=== PATIENT | female | born 1960 | race Caucasian/White ===

== ENCOUNTER → 2017-02-28 | Outpatient (CLI) | payer OTHER ==
[~2017-02-28] MED LIST: LACT1CAP62 PO; OMEP40CA36 PO
--- NOTE | 2017-03-03 17:49 | Diagnostic Imaging Report ---
Bilateral screening mammogram. The current study was also evaluated with a Computer Aided Detection (CAD) system. INDICATION: Screening. No current complaints stated on the questionnaire. COMPARISON: 02/19/16. FINDINGS: The breasts are composed of scattered fibroglandular densities. No mass or significant calcification seen. Allowing for technique and positional differences, no suspicious change is seen. IMPRESSION: No significant change. ACR BI-RADS Category 2: Benign findings. Result letter will be mailed to the patient. Note: At least 10% of breast cancer is not imaged by mammography. Dictated by: Dictated on workstation # [id number]
== END ==
LOC: RAD 09:17
PROVIDERS: ATTEND Internal Medicine
DX: Z12.31 Encounter for screening mammogram for malignant neoplasm of breast (principal)
CPT/HCPCS: 77067

== ENCOUNTER 2017-03-06 05:40 | Outpatient (CLI) | payer OTHER ==
[~2017-03-06] VITALS: Ht 165.1 cm; Wt 88.9 kg
[2017-03-06] MEDS ORDERED: OMEP40CA36 PO (13:09)
[2017-03-06] MEDS ORDERED: LACT1CAP62 PO (13:09)
== END 2017-03-06 13:18 ==
LOC: PREOP 05:40
PROVIDERS: ATTEND Surgery Pediatric Surgery
DX: Z01.818 Encounter for other preprocedural examination (principal); R19.4 Change in bowel habit

== ENCOUNTER 2017-03-08 08:10 | Day surgery (SDC) | payer OTHER ==
[~2017-03-08] VITALS: Ht 165.1 cm; Wt 88.9 kg
[2017-03-08 08:27] VITALS: BP 130/71
[2017-03-08] MEDS ORDERED: FLUMAZENIL (ROMAZICON) 0.1 MG/ML 5 ML VIAL INJ PRN (08:30)
[2017-03-08] MEDS ORDERED: NALOXONE 0.4 MG/ML 1 ML (NARCAN) VIAL IVP PRN (08:30)
[2017-03-08] MEDS ORDERED: NS IV 500 ML 500 ML IV ONE (08:30)
[2017-03-08] MEDS ORDERED: NS IV 500 ML 500 ML ONE (08:41)
[2017-03-08] MEDS ORDERED: MIDAZOLAM 2 MG/2 ML (VERSED) VIAL ONE ×4 (09:34)
[2017-03-08] MEDS ORDERED: fentaNYL INJECTION 100 MCG/2 ML AMP ONE ×2 (09:34→09:35)
[2017-03-08] MEDS ORDERED: LIDOCAINE JELLY 2% (XYLOCAINE) 5 ML TUBE ONE (09:35)
[2017-03-08] MEDS: fentaNYL INJECTION 100 MCG/2 ML AMP IVP PRN ×4 (09:40→10:00)
--- NOTE | 2017-03-08 09:42 | Conscious Sedation/ASA ---
Conscious Sedation Pre-Proced Time Reviewed: 09:00 ASA Class: 2 Airway Mallampati Classification: ([place] appropriate class) I. II. III, IV Lungs Heart ASA score ASA 1: a normal healthy patient ASA 2: a patient with a mild systemic disease (mid diabetes, controlled hypertension, obesity ASA 3: a patient with a severe systemic disease that limits activity (angina , COPD, prior Myocardial infarction) ASA 4: a patient with an incapacitating disease that is a constant threat to life (CHF, renal failure) ASA 5: a moribund patient not expected to survive 24 hrs. (ruptured aneurysm) ASA 6: a declared brain patient whose organs are being harvested. For emergent operations, add the letter E after the classification Grade 2 Sedation Plan: Analgesia, Amnesia, Plan communicated to team members, Discussed options with patient/fam, Discussed risks with patient/fam Note The patient is an appropriate candidate to undergo the planned procedure, sedation, and anesthesia. The patient immediately re-assessed prior to indication. SHANTI COTA MD March 08, 2017 9:42 am
--- NOTE | 2017-03-08 09:42 | Progress Note-Pre Operative ---
Pre-Operative Progress Note H&P Reviewed The H&P was reviewed, patient examined and no changes noted. Date H&P Reviewed: March 08, 2017 Time H&P Reviewed: 09:00 Pre-Operative Diagnosis: hx colitis SHANTI COTA MD March 08, 2017 9:42 am
[2017-03-08] MEDS ORDERED: ACETAMINOPHEN 325 MG TABLET/CAPLET (TYLENOL) PO PRN (09:45)
[2017-03-08] MEDS ORDERED: morphine INJ 10 MG/ML 1ML (SYR OR VIAL) IV PRN (09:45)
[2017-03-08] MEDS ORDERED: HYDROcodone/APAP 5 MG/325 MG (LORTAB) TAB PO PRN (09:45)
[2017-03-08] MEDS ORDERED: ONDANSETRON 4 MG/2 ML (SDV) Z0FRAN IV PRN (09:45)
[2017-03-08] MEDS: MIDAZOLAM 2 MG/2 ML (VERSED) VIAL IVP PRN ×4 (09:45→10:04)
[2017-03-08 10:30] VITALS: BP 112/60
--- NOTE | 2017-03-08 10:33 | Progress Note-Post Operative ---
Post-Operative Progess Note Surgeon (s)/Professor Of Biological Sciences (s) Surgeon SHANTI COTA MD Professor Of Biological Sciences: none Pre-Operative Diagnosis hx colitis Post-Operative Diagnosis chronic stage 2 ext and int hemorrhoids, mild sigmoid diverticulosis, small HP polyp sigmoid(2mm). Post-Op Procedure Note Date of Procedure: March 08, 2017 Name of Procedure Performed: Colonoscopy with bx. Description of the Procedure: Colonoscopy with bx. Findings of the Procedure . Anesthesia Type CS Estimated blood loss (mL): minimal Specimen(s) collected/removed sigmoid polyp SHANTI COTA MD March 08, 2017 10:33 am
--- NOTE | 2017-03-08 10:34 | Discharge Inst-Surgical ---
D/C Lap Instructions-BEATA Follow Up 5 years Activity as tolerated High Fiber Diet 25g or more per day Avoid Alcohol, Caffeine, Spicy [place] and Acid foods. Drink 64 fluid oz or more of fluids per day. Symptoms to Report: Fever over 101 degree F, Nausea/Vomiting If any problems/questions: Contact your physician or go to Emergency Room SHANTI COTA MD March 08, 2017 10:34 am
[2017-03-08 11:15] VITALS: BP 120/62
[2017-03-08 11:26] VITALS: BP 120/62
--- NOTE | 2017-03-09 01:19 | OPERATIVE REPORT ---
DATE OF SERVICE: 03/08/2017 ATTENDING PRIMARY CARE PHYSICIAN: Dr. Jl Flynn. PREOPERATIVE DIAGNOSIS: Change in bowel habits with diarrhea and stool incontinence. DESCRIPTION OF PROCEDURE: She states that many years ago, in her early 20s, she was diagnosed with some form of colitis and it was treated; however, since that time, has never had any flareups or any issues. She does not report any red blood per rectum or any dark tarry stools. She also does not report any mucusy stools. The patient was brought to the endoscopy suite, laid in the left lateral decubitus position. After adequate IV pain, sedative medications and conscious sedation anesthesia digital rectal examination was performed. Chronic stage II external and internal hemorrhoids were identified which were not actively edematous or inflamed and no bleeding. Normal sphincter tone was felt and there were no palpable masses. The endoscope was then intubated into the anus and rectum gently insufflated. The endoscope was then advanced to the valves of [place] of the rectum with no polyps or any neoplasms identified. Through the sigmoid colon, there was a very mild or early sigmoid diverticulosis. There was also small hyperplastic polyp approximately 2 mm in size, which was benign. This was biopsied and destroyed using forceps and electrocautery with visualization of good hemostasis. The endoscope was then advanced to the remainder of the descending, transverse, ascending colon and the cecum. These segments were normal throughout the colon and rectum, there were no mucosal inflammatory change to indicate any active colitis or proctitis. The endoscope was then slowly withdrawn taking a second look and suctioning all residual air with no additional findings. The patient tolerated the procedure well. We feel that her change in bowel habits more than likely has to do with some form of irritable bowel syndrome as well as stress and diet changes. We will recommend a high fiber diet with at least 25-30 grams of fiber per day as well as significant amount of water, but at least 64-128 fluid ounces daily to promote soft stools on a daily basis. Hyperplastic polyp was identified and due to this, we will recommend a followup colonoscopy in approximately 5 years. Job ID: [id number] DocumentID: [id number] Dictated Date: 03/08/2017 10:24:11 General Utility Maintenance Repairer Date: 03/09/2017 00:10:01 Dictated By: SHANTI COTA MD
== END 2017-03-08 11:27 | disposition home or self-care (01) ==
LOC: ENDO 08:10
PROVIDERS: ATTEND Surgery Pediatric Surgery
DX: K63.5 Polyp of colon (principal); K64.1 Second degree hemorrhoids; K57.90 Diverticulosis of intestine, part unspecified, without perforation or abscess without bleeding; R19.5 Other fecal abnormalities; K21.9 Gastro-esophageal reflux disease without esophagitis; Z87.891 Personal history of nicotine dependence
CPT/HCPCS: 88305

== ENCOUNTER → 2017-07-19 | Outpatient (CLI) | payer OTHER ==
[~2017-07-19] MED LIST changes: +ASPI-999 PO; +ATOR10TA PO; +NF-XOP-HFA IH; +RT-ALBUTEROL SULF 2.5 MG/3 ML PRE-MIX VIAL IH ONE
--- NOTE | 2017-07-19 10:25 | Diagnostic Imaging Report ---
INDICATION: Chest pain. COMPARISON: 08/01/2016. FINDINGS: The lungs are clear. The heart and vessels are normal. There is no effusion or pneumothorax. IMPRESSION: No acute appearing abnormality. Dictated by: Dictated on workstation # [id number]
== END ==
LOC: RT 08:11
PROVIDERS: ATTEND Internal Medicine
DX: R06.00 Dyspnea, unspecified (principal)
CPT/HCPCS: 71020; 94060; 94640; 94726; 94729

== ENCOUNTER → 2017-08-30 | Outpatient (CLI) | payer OTHER ==
[~2017-08-30] VITALS: Ht 165.1 cm; Wt 90.3 kg
[~2017-08-30] MED LIST changes: -ASPI-999 PO; -ATOR10TA PO; +CATHETER FLUSH 10 ML SYR IV PRN; -NF-XOP-HFA IH; -RT-ALBUTEROL SULF 2.5 MG/3 ML PRE-MIX VIAL IH ONE
[2017-08-30 13:02] VITALS: BP 148/75
== END ==
LOC: CARD 08:50
PROVIDERS: ATTEND Internal Medicine Cardiovascular Disease
DX: R07.89 Other chest pain (principal); I10 Essential (primary) hypertension; E78.2 Mixed hyperlipidemia; R06.02 Shortness of breath; E66.9 Obesity, unspecified; Z68.33 Body mass index [BMI] 33.0-33.9, adult
CPT/HCPCS: 93306

== ENCOUNTER 2017-09-06 07:46 | Day surgery (SDC) | payer OTHER ==
[2017-09-06] VITALS (11 sets, daily range): BP systolic 102–148; BP diastolic 67–90
[~2017-09-06] VITALS: Ht 165.1 cm; Wt 90.7 kg
[~2017-09-06 07:46] MED LIST changes: -CATHETER FLUSH 10 ML SYR IV PRN
--- OUTSIDE RECORDS SUMMARY | 2017-09-06 07:49 | XMS REPORT | Continuity of Care Document ---
Author Author [facility] Organization [facility] Address Unknown Phone Unavailable Allergies Active Description Code Type Severity Reaction Onset Reported/Identified Relationship to Patient Clinical Status Yes pattie [id number] Drug Allergy Severe ANAPHYLAXIS 03/06/2017 Medications Problems Date Dx Coded Attending Type Code Diagnosis Diagnosed By 02/22/2016 NATE CLIFFORD MD, Ot E11.9 TYPE 2 DIABETES MELLITUS WITHOUT COMPLIC 02/22/2016 NATE CLIFFORD MD, Ot I10 ESSENTIAL (PRIMARY) HYPERTENSION 02/22/2016 NATE CLIFFORD MD Ot Z00.00 ENCNTR FOR GENERAL ADULT MEDICAL EXAM W02/22/2016 NATE CLIFFORD MD Ot Z12.31 ENCNTR SCREEN MAMMOGRAM FOR MALIGNANT NE 03/18/2016 NATE CLIFFORD MD Ot E11.9 TYPE 2 DIABETES MELLITUS WITHOUT COMPLIC 03/18/2016 NATE CLIFFORD MD Ot I10 ESSENTIAL (PRIMARY) HYPERTENSION 03/18/2016 NATE CLIFFORD MD Ot Z00.00 ENCNTR FOR GENERAL ADULT MEDICAL EXAM W03/18/2016 NATE CLIFFORD MD Ot Z12.31 ENCNTR SCREEN MAMMOGRAM FOR MALIGNANT NE 07/05/2016 NATE CLIFFORD MD Ot E11.9 TYPE 2 DIABETES MELLITUS WITHOUT COMPLIC 07/05/2016 NATE CLIFFORD MD Ot I10 ESSENTIAL (PRIMARY) HYPERTENSION 07/05/2016 NATE CLIFFORD MD Ot Z00.00 ENCNTR FOR GENERAL ADULT MEDICAL EXAM W07/05/2016 NATE CLIFFORD MD Ot Z12.31 ENCNTR SCREEN MAMMOGRAM FOR MALIGNANT NE 07/06/2016 NATE CLIFFORD MD Ot E78.4 OTHER HYPERLIPIDEMIA 08/01/2016 NATE CLIFFORD MD Ot E78.4 OTHER HYPERLIPIDEMIA 08/02/2016 NATE CLIFFORD MD Ot R05 COUGH 08/03/2016 NATE CLIFOFRD MD Ot E78.4 OTHER HYPERLIPIDEMIA 08/07/2016 NATE CLIFFORD MD Ot R05 COUGH 09/01/2016 NATE CLIFFORD MD Ot R05 COUGH 03/01/2017 NATE CLIFFORD MD Ot Z12.31 ENCNTR SCREEN MAMMOGRAM FOR MALIGNANT NE 03/03/2017 NATE CLIFFORD MD Ot E78.4 OTHER HYPERLIPIDEMIA 03/03/2017 NATE CLIFFORD MD, Ot R05 COUGH 03/03/2017 NATE CLIFFORD MD Ot Z12.31 ENCNTR SCREEN MAMMOGRAM FOR MALIGNANT NE 03/06/2017 SHANTI COTA MD, Ot R19.4 CHANGE IN BOWEL HABIT 03/06/2017 SHANTI COTA MD, Ot Z01.818 ENCOUNTER FOR OTHER PREPROCEDURAL EXAMIN 03/08/2017 SHANTI COTA MD, Ot K21.9 GASTRO-ESOPHAGEAL REFLUX DISEASE WITHOUT 03/08/2017 SHANTI COTA MD, Ot K57.90 DVRTCLOS OF INTEST, PART UNSP, W/O PERF 03/08/2017 SHANTI COTA MD Ot K63.5 POLYP OF COLON 03/08/2017 SHANTI COTA MD Ot K64.1 SECOND DEGREE HEMORRHOIDS 03/08/2017 SHANTI COTA MD Ot R19.5 OTHER FECAL ABNORMALITIES 03/08/2017 SHANTI COTA MD Ot Z87.891 PERSONAL HISTORY OF NICOTINE DEPENDENCE 03/14/2017 SHANTI COTA MD Ot K21.9 GASTRO-ESOPHAGEAL REFLUX DISEASE WITHOUT 03/14/2017 SHANTI COTA MD Ot K57.90 DVRTCLOS OF INTEST, PART UNSP, W/O PERF 03/14/2017 SHANTI COTA MD Ot K63.5 POLYP OF COLON 03/14/2017 SHANTI COTA MD, Ot K64.1 SECOND DEGREE HEMORRHOIDS 03/14/2017 SHANTI COTA MD Ot R19.5 OTHER FECAL ABNORMALITIES 03/14/2017 SHANTI COTA MD Ot Z87.891 PERSONAL HISTORY OF NICOTINE DEPENDENCE 07/17/2017 NATE CLIFFORD MD, Ot E78.4 OTHER HYPERLIPIDEMIA 07/17/2017 NATE CLIFFORD MD, Ot R05 COUGH 07/17/2017 NATE CLIFFORD MD Ot Z12.31 ENCNTR SCREEN MAMMOGRAM FOR MALIGNANT NE 07/20/2017 NATE CLIFFORD MD Ot R06.00 DYSPNEA, UNSPECIFIED 07/25/2017 NATE CLIFFORD MD Ot R06.00 DYSPNEA, UNSPECIFIED Procedures Results Test Result Range Lipid 1996 panel - 07/05/16 08:21 Serum or plasma triglyceride measurement (mass/volume) 107 mg/dL <150 Serum or plasma cholesterol measurement (mass/volume) 221 mg /dL < 200 Serum or plasma cholesterol in HDL measurement (mass/volume) 52 mg/dL 40-60 Cholesterol in LDL [mass/volume] in serum or plasma by direct assay 157 mg/dL 1-129 Serum or plasma cholesterol in VLDL measurement (mass/volume) 21 mg/dL 5-40 Encounters ACCT No. Visit Date/Time Discharge Status Pt. Type Provider Facility Loc./Unit Complaint [id number] 08/30/2017 08:50:00 2016 23:59:59 CLS Outpatient LUDWIN HINES MD [facility] CARD R07.89 ANTERIOR CHEST WALL PAIN [id number] 08/01/2017 15:37:00 2016 23:59:59 CLS Preadmit LUDWIN HINES MD [facility] CARD ANTERIOR CHEST WALL PAIN [id number] 07/19/2017 08:11:00 2016 23:59:59 CLS Outpatient NATE CLIFFORD MD [facility] RT DYSPNEA [id number] 03/08/2017 08:10:00 2016 11:27:00 DIS Outpatient SHANTI COTA MD [facility] ENDO SCREENING [id number] 03/06/2017 05:40:00 2016 13:18:00 DIS Outpatient SHANTI COTA MD [facility] PREOP COLONOSCOPY [id number] 02/28/2017 09:17:00 2016 23:59:59 CLS Outpatient NATE CLIFFORD MD [facility] RAD SCREENING [id number] 08/01/2016 10:22:00 2015 23:59:59 CLS Outpatient NATE CLIFFORD MD [facility] RAD COUGH [id number] 07/05/2016 08:08:00 2015 23:59:59 CLS Outpatient NATE CLIFFORD MD [facility] LAB E78.4 [id number] 02/19/2016 11:04:00 2015 23:59:59 CLS Outpatient NATE CLIFFORD MD [facility] RAD SCREENING [id number] 06/26/2015 11:43:00 2014 23:59:59 CLS Outpatient MINH BAIN [facility] OCC
[2017-09-06] MEDS ORDERED: NS IV 1000 ML 3,000 ML ONE (07:51)
[2017-09-06] MEDS ORDERED: HEParin 1000 UNIT/ML (10ML VIAL) FOR BOLUS ONE (07:51)
[2017-09-06] MEDS ORDERED: NS IV 1000 ML 1,000 ML IV SCH ×2 (08:15→11:36)
[2017-09-06 08:27] LABS: MEAN PLATELET VOLUME 9.9 FL (7.4-10.4); RED BLOOD COUNT 4.73 10^6/uL (4.35-5.85); RED CELL DISTRIBUTION WIDTH 13.7 % (10.0-14.5)
[2017-09-06 08:27] LABS: BILIRUBIN,URINE NEGATIVE (NEGATIVE); KETONES,URINE NEGATIVE (NEGATIVE); LEUKOCYTE ESTERASE ,URINE 1+ (NEGATIVE); NITRITE,URINE NEGATIVE (NEGATIVE); PH,URINE 5 (5-9); PROTEIN,URINE NEGATIVE (NEGATIVE); UROBILINOGEN,URINE NORMAL (NORMAL)
[2017-09-06 08:37] LABS: INR 0.8 (0.8-1.4); PROTHROMBIN TIME PATIENT 11.6 SEC (12.2-14.7)
[2017-09-06 08:37] LABS: SQUAMOUS EPITHELIAL CELL,UR 25-50 /HPF; WBC,URINE RARE /HPF
[2017-09-06 08:45] LABS: ALANINE AMINOTRANSFERASE 17 U/L (0-55); ALBUMIN 4.2 GM/DL (3.2-4.5); ANION GAP 10 MMOL/L (5-14); ASPARTATE AMINO TRANSFERASE 20 U/L (5-34); BILIRUBIN,TOTAL 0.5 MG/DL (0.1-1.0); BLOOD UREA NITROGEN 21 MG/DL (7-18); BUN/CREATININE RATIO 25; CARBON DIOXIDE 26 MMOL/L (21-32); CHLORIDE 105 MMOL/L (98-107); CHOLESTEROL 244 MG/DL (< 200); CREATININE SERUM 0.83 MG/DL (0.60-1.30); DIRECT LDL 168 MG/DL (1-129); GFR ESTIMATED > 60; GLUCOSE 113 MG/DL (70-105); SODIUM 141 MMOL/L (135-145); TOTAL PROTEIN 7.5 GM/DL (6.4-8.2); TRIGLYCERIDES 141 MG/DL (<150); VLDL CHOLESTEROL 28 MG/DL (5-40)
--- NOTE | 2017-09-06 08:51 | Diagnostic Imaging Report ---
Portable upright radiograph of the chest. INDICATION: Abnormal stress test and chest pain. FINDINGS: The lungs are clear. The heart size is normal. No effusion or pneumothorax The mediastinum and venessa appear unremarkable. Impression: Unremarkable exam. Dictated by: Dictated on workstation # [id number]
[2017-09-06] MEDS ORDERED: ASPI-999 PO (09:03)
[2017-09-06] MEDS ORDERED: NF-XOP-HFA IH (09:03)
--- NOTE | 2017-09-06 10:00 | Cardiac Procedure Note-CS/ASA ---
Pre-Procedure Note Pre-Op Procedure Note H&P Reviewed The H&P was reviewed, patient examined and no changes noted. Date H&P Reviewed: Sep 06, 2017 Time H&P Reviewed: 10:00 Conscious Sedation Pre-Proced Time Reviewed: 10:00 ASA Class: 3 Airway Mallampati Classification: ([place] appropriate class) I. II. III, IV Lungs Heart ASA score ASA 1: a normal healthy patient ASA 2: a patient with a mild systemic disease (mid diabetes, controlled hypertension, obesity x ASA 3: a patient with a severe systemic disease that limits activity (angina , COPD, prior Myocardial infarction) ASA 4: a patient with an incapacitating disease that is a constant threat to life (CHF, renal failure) ASA 5: a moribund patient not expected to survive 24 hrs. (ruptured aneurysm) ASA 6: a declared brain patient whose organs are being harvested. For emergent operations, add the letter E after the classification Grade 3 Sedation Plan: Analgesia, Amnesia, Plan communicated to team members, Discussed options with patient/fam, Discussed risks with patient/fam Note The patient is an appropriate candidate to undergo the planned procedure, sedation, and anesthesia. The patient immediately re-assessed prior to indication. LUDWIN HINES MD Sep 06, 2017 10:00
[2017-09-06] MEDS ORDERED: MIDAZOLAM 5 MG/5 ML (VERSED) VIAL ONE (10:25)
[2017-09-06] MEDS ORDERED: fentaNYL INJECTION 100 MCG/2 ML AMP ONE (10:25)
[2017-09-06] MEDS ORDERED: ATOR10TA PO (11:38)
--- NOTE | 2017-09-06 11:39 | Discharge Inst-Post CATH ---
Discharge Inst-CATH Post Cardiac Cath D/C Inst Follow Up/Plan Appointment with Dr Mulligan's office in 2-4 weeks CARDIAC CATH DISCHARGE INSTRUCTIONS *Hold Metformin for 48 hours post heart cath. ACTIVITY * Go Home directly and rest. * Limit activity of the leg (or wrist if it was used) for 7 days including aerobics, swimming, jogging, bicycling, etc. * Restrict stair-climbing for 7 days if possible, if not, climb up with your non -cath leg, then bring together on the same step. * Avoid lifting, pushing, pulling or excessive movement of the affected extremity for 7 days. * Customary sexual activity may be resumed after 2 days-use caution not to use a position that strains or causes pain to the affected extremity. * No driving for 24 hours. * NO SMOKING. * Avoid straining for bowel movements for 7 days. * Gentle walking on level ground is allowed. * Returning to work will depend on the type of procedure and the results. Your doctor will discuss this with you. CALL YOUR DOCTOR FOR ANY OF THE FOLLOWING: *If bleeding from the puncture site occurs- Apply gentle pressure to site with clean cloth and call your doctor or EMS. * If a knot or lump forms under the skin, increases in size, or causes pain. * If bruising appears to be worsening or moving further down your leg instead of disappearing. * Temperature above 101 F. CARE OF YOUR GROIN INCISION; * Bruising or purple discoloration of the skin near the puncture site is common. * You may shower only, no bathtub bathing for 5 days. Be careful to avoid slipping as your leg may feel stiff. * If a closure device was used on your femoral artery, please see the attached guide regarding care of the device and your leg. * REMOVE the dressing from your groin the next day after your procedure in the shower. CARE OF YOUR WRIST INCISION; * Bruising or purple discoloration of the skin near the puncture site is common. * You may shower. * DO NOT submerge wrist. * Remove dressing in 24 hours. LUDWIN MULLIGAN MD Sep 06, 2017 11:39
--- NOTE | 2017-09-06 11:43 | Cardiac Cath Report ---
Cardiac Cath Report Physician (s)/Audit Analyst (s) Physician LUDWIN HINES MD Pre-Procedure Diagnosis Pre-Procedure Diagnosis: CAD Post-Procedure Note Procedure Start Date: Sep 06, 2017 Procedure Start Time: 11:00 Name of Procedure: [facility] Findings/Procedure Note PROCEDURE NOTE: After explaining the procedure to the patient, all pros and cons were explained, all questions were answered. The patient signed the consent and then she was placed on the cardiac catheterization laboratory. The patient was placed on the cardiac catheterization laboratory. Groin was prepped SL fashion local anesthesia was used. Sheath placed in the artery. Amie left and MP1 catheter were used to access the coronary system. Pigtail was used to access the left ventricular cavity. Left ventriculogram was not done Aortic arch angiogram was not done At the end of the procedure the sheath was removed. 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 LV Gram Was not done pressure was measured CONCLUSION: 1. Mild coronary artery disease nonobstructive disease 2. 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 Normal left ventricular end-diastolic pressure DISCUSSION AND RECOMMENDATION: no intervention is needed, patient has hyperlipidemia which will be treated. Anesthesia Type: Conscious Sedation Estimated blood loss (mL): 10 ml Contrast Amount: 37 ml Total Radiation Dose: 426 mGy Post-Procedure Diagnosis Post-operative diagnosis: Coronary artery disease Hyperlipidemia Chest pain nonspecific etiology LUDWIN HINES MD Sep 06, 2017 11:43
[2017-09-06] MEDS ORDERED: PATIENT MAY USE OWN MEDS, ALL PO SCH (11:45)
== END 2017-09-06 15:55 | disposition home or self-care (01) ==
LOC: CATH 07:46 → SURG 11:58 → CATH 15:55
PROVIDERS: ATTEND Internal Medicine Cardiovascular Disease
DX: I25.10 Atherosclerotic heart disease of native coronary artery without angina pectoris (principal); I10 Essential (primary) hypertension; E78.2 Mixed hyperlipidemia; J44.9 Chronic obstructive pulmonary disease, unspecified; K21.9 Gastro-esophageal reflux disease without esophagitis; E06.9 Thyroiditis, unspecified; E66.9 Obesity, unspecified; Z68.33 Body mass index [BMI] 33.0-33.9, adult; Z87.891 Personal history of nicotine dependence; Z82.49 Family history of ischemic heart disease and other diseases of the circulatory system; Z79.82 Long term (current) use of aspirin
CPT/HCPCS: 36415; 36430; 71010; 80053; 80061; 81000; 85027; 85610; 85730; 87081; 93458

== ENCOUNTER → 2018-03-01 | Outpatient (CLI) | payer OTHER ==
[~2018-03-01] MED LIST changes: +ASPI-999 PO; +ATOR10TA PO; +NF-XOP-HFA IH
--- NOTE | 2018-03-01 19:39 | Diagnostic Imaging Report ---
INDICATION: Routine screening. Comparison is made with prior study from 02/28/2017 and 02/19/2016. TECHNIQUE: Bilateral 3D digital tomographic views were obtained with [employer] and reviewed on a [employer] workstation. In addition, CAD - computer aided detection was utilized. FINDINGS: Scattered fibroglandular densities are identified bilaterally. No mass or malignant-appearing microcalcifications are seen. The axillae are unremarkable. IMPRESSION: No mammographic features suspicious for malignancy are identified. ACR BI-RADS Category 1: Negative. Result letter will be mailed to the patient. Note: At least 10% of breast cancer is not imaged by mammography. Dictated by: Dictated on workstation # [id number]
== END ==
LOC: RAD 09:41
PROVIDERS: ATTEND Internal Medicine
DX: Z12.31 Encounter for screening mammogram for malignant neoplasm of breast (principal)
CPT/HCPCS: 77067

== ENCOUNTER → 2018-04-10 | Outpatient (CLI) | payer OTHER ==
--- NOTE | 2018-04-10 17:08 | Diagnostic Imaging Report ---
EXAMINATION: Ultrasound of the head and neck. INDICATION: Left cervical lymph nodes. COMPARISON: There are no previous studies available for comparison. FINDINGS: By history, the patient has palpable lymph nodes in the left neck. However, on this exam, there is no cervical adenopathy identified. In the area of the patient's palpable abnormality, however, the proximal internal carotid artery does seem prominent. There is blood flow within the vessel, and there is no sign of occlusion. Even so, a dedicated carotid Doppler exam would be recommended for further evaluation of the internal carotid artery and the bifurcation. The thyroid gland is not enlarged with the right lobe measuring 4.3 x 1.4 x 1.7 cm while the left lobe estimated to be 4.9 x 1.9 x 1.5 cm (normal gland size 4-5 x 2 x 2 cm or less). Within the left lobe of the thyroid, there is a fairly well-circumscribed avascular hypoechoic mass measuring 2.1 x 1.4 x 1.7 cm. Whether this is a solid nodule or whether this is a cyst which has been complicated by infection and/or hemorrhage is not certain. I would recommend that a nuclear medicine thyroid scan be performed to better characterize this finding unless there are previous thyroid ultrasound exams available to demonstrate that this lesion is stable. There are also subcentimeter nodules in the right lobe and the isthmus. IMPRESSION: 1. There is no cervical adenopathy identified. 2. The internal carotid artery on the left does seem prominent. A carotid Doppler exam would be recommended for further evaluation. 3. A nuclear medicine thyroid scan would be recommended to better evaluate the 2.1 x 1.4 cm nodule in the left lobe of the thyroid. Dictated by: Dictated on workstation # [id number]
== END ==
LOC: RAD 13:55
PROVIDERS: ATTEND Nurse Practitioner
DX: E04.1 Nontoxic single thyroid nodule (principal); R59.0 Localized enlarged lymph nodes
CPT/HCPCS: 76536

== ENCOUNTER → 2018-04-17 | Outpatient (CLI) | payer OTHER ==
--- NOTE | 2018-04-17 13:16 | Diagnostic Imaging Report ---
PROCEDURE: US carotid duplex, bilateral. TECHNIQUE: Multiple real-time grayscale images were obtained over the carotid arteries in various projections, bilaterally. Additional duplex Doppler and color Doppler images were also obtained. INDICATION: Suggestion of abnormal findings of the of the internal carotid artery on recent ultrasound imaging the soft tissue neck. TECHNIQUE: Multiple real-time images with color Doppler imaging were performed. Doppler velocity and waveform data were obtained. The cervical carotid and vertebral arteries were evaluated. FINDINGS: Color and grayscale images demonstrate mild scattered atheromatous plaque involving the carotid arteries, particularly at the carotid bifurcations. This is perhaps slightly more pronounced on the left compared to the right. However, there are no abnormally elevated velocities or findings to suggest significant stenosis of the carotid arteries at this time. External carotid arteries are patent. Vertebral arteries are with antegrade direction of flow. IMPRESSION: 1. Carotid Doppler imaging demonstrates mild areas of scattered plaque present. However, currently no findings to suggest a hemodynamically significant stenosis at this time. 2. Periodic followup survey assessment would be recommended for reevaluation. Parameters based on the consensus panel Vásquez-Scale and Doppler ultrasound criteria published September 2003, Radiology, Volume 229. DOPPLER (peak systolic velocity M/S Right Left CCA .79 .78 ICA Proximal .79 1.12 ICA Mid .83 1.17 ICA Distal 1.02 1.11 RATIO 1.3 1.5 ECA 1.04 1.05 VERT .44 .53 Dictated by: Dictated on workstation # [id number]
== END ==
LOC: RAD 11:13
PROVIDERS: ATTEND Nurse Practitioner
DX: I65.23 Occlusion and stenosis of bilateral carotid arteries (principal)
CPT/HCPCS: 93880

== ENCOUNTER 2018-07-12 09:45 | Outpatient (RCR) | payer OTHER | END 2018-08-31 13:38 | disposition home or self-care (01) | DX: M25.511 Pain in right shoulder (principal); M79.601 Pain in right arm; M54.2 Cervicalgia ==

== ENCOUNTER 2018-11-24 09:13 | Emergency (ER) | payer OTHER | END 2018-11-24 12:36 | disposition home or self-care (01) | LOC: ER 09:13 ==

== ENCOUNTER → 2019-03-08 | Outpatient (CLI) | payer OTHER ==
--- NOTE | 2019-03-08 19:03 | Diagnostic Imaging Report ---
EXAMINATION: Digital mammogram bilateral screening with 3D tomosynthesis and computer-aided detection (CAD) system. INDICATION: Screening. COMPARISON: This study was compared to the prior exams of 03/01/2018, 02/28/2017, and 03/01/2016. At this time, there are no current complaints. FINDINGS: The breasts are predominantly fatty. There is only a small amount of fibroglandular tissue in both breasts. There is no primary or secondary sign of malignancy noted. When compared to the previous studies, there does not appear to have been any significant change. IMPRESSION: There is no evidence of malignancy. ACR BI-RADS Category 1: Negative. Result letter will be mailed to the patient. Note: At least 10% of breast cancer is not imaged by mammography. Dictated by: Dictated on workstation # [id number]
== END ==
LOC: RAD 09:06
PROVIDERS: ATTEND Internal Medicine
DX: Z12.31 Encounter for screening mammogram for malignant neoplasm of breast (principal)
CPT/HCPCS: 77067

== ENCOUNTER → 2020-03-27 | Outpatient (CLI) | payer OTHER ==
[~2020-03-27] MED LIST changes: +OMEP40CA27 PO; -OMEP40CA36 PO
--- NOTE | 2020-03-27 18:40 | Diagnostic Imaging Report ---
INDICATION: Routine screening. Comparison is made with prior mammograms from 03/08/2019 and 03/01/2018. 2-D and 3-D bilateral screening mammography was performed. Current study was also evaluated with a Computer Aided Detection (CAD) system. FINDINGS: Scattered fibroglandular densities are identified bilaterally. The parenchymal pattern is stable. No mass or malignant-appearing microcalcifications are identified. Axillae are unremarkable. IMPRESSION: No mammographic features suspicious for malignancy are identified. ACR BI-RADS Category 1: Negative. Result letter will be mailed to the patient. Note: At least 10% of breast cancer is not imaged by mammography. Dictated by: Dictated on workstation # [id number]
== END ==
LOC: RAD 09:35
PROVIDERS: ATTEND Physician Assistant
DX: Z12.31 Encounter for screening mammogram for malignant neoplasm of breast (principal)
CPT/HCPCS: 77063; 77067

== ENCOUNTER → 2020-07-03 | Outpatient (CLI) | payer OTHER ==
[2020-07-03 09:56] LABS: ALANINE AMINOTRANSFERASE 17 U/L (0-55); ALBUMIN 3.9 GM/DL (3.2-4.5); ALKALINE PHOSPHATASE 85 U/L (40-136); BILIRUBIN,TOTAL 0.3 MG/DL (0.1-1.0); BUN/CREATININE RATIO 20; CALCIUM 9.6 MG/DL (8.5-10.1); CARBON DIOXIDE 30 MMOL/L (21-32); CHLORIDE 105 MMOL/L (98-107); CREATININE SERUM 0.79 MG/DL (0.60-1.30); GFR ESTIMATED > 60; GLUCOSE 85 MG/DL (70-105); SODIUM 141 MMOL/L (135-145)
== END ==
LOC: LAB 09:15
PROVIDERS: ATTEND Internal Medicine
DX: E11.9 Type 2 diabetes mellitus without complications (principal); I10 Essential (primary) hypertension; Z79.899 Other long term (current) drug therapy
CPT/HCPCS: 36415; 80053; 83036

== ENCOUNTER → 2020-10-21 | Outpatient (CLI) | payer OTHER ==
[~2020-10-21] MED LIST changes: +CATHETER FLUSH 10 ML SYR IV PRN; +HOLD METFORMIN - RECEIVED CONTRAST 20 ML VIAL IV SCH; +IOHEXOL 350 MG/ML 100 ML (OMNIPAQUE 350) VIAL IV ONE; +NS 100 ML (IVPB) BAG IV ONE
--- NOTE | 2020-10-21 16:21 | Diagnostic Imaging Report ---
PROCEDURE: CT head with and without contrast. TECHNIQUE: Multiple contiguous axial images were obtained through the brain before and after the administration of intravenous contrast. Auto Exposure Controls were utilized during the CT exam to meet ALARA standards for radiation dose reduction. INDICATION: Headache and dizziness. FINDINGS: The ventricles and sulci are within normal limits for size. There is no geographic low density to indicate territorial infarct however there is a focal rounded lucency, measuring less than 1 cm in size, in the left frontal deep white matter. There is no abnormal mass effect or shift of midline structures. There is mild athetotic calcic aeration present within distal internal carotid arteries, bilaterally. There is no evidence of abnormal contrast enhancement. Calvarium is intact and the visualized paranasal sinuses are clear. There is opacification of several posterior right mastoid air cells. IMPRESSION: 1. Possible old lacunar infarct in the left frontal deep white matter. There is concern for acute ischemia, MRI has greater sensitivity. 2. There is fluid present within the right mastoid air cells without evidence of paranasal sinus disease. Dictated by: Dictated on workstation # [id number]
== END ==
LOC: RAD 15:01
PROVIDERS: ATTEND Physician Assistant
DX: H93.19 Tinnitus, unspecified ear (principal); R42 Dizziness and giddiness; R11.0 Nausea; R51.9 Headache, unspecified
CPT/HCPCS: 70470

== ENCOUNTER → 2020-10-21 | Outpatient (CLI) | payer OTHER ==
[~2020-10-21] MED LIST changes: -CATHETER FLUSH 10 ML SYR IV PRN; -HOLD METFORMIN - RECEIVED CONTRAST 20 ML VIAL IV SCH; -IOHEXOL 350 MG/ML 100 ML (OMNIPAQUE 350) VIAL IV ONE; -NS 100 ML (IVPB) BAG IV ONE
[2020-10-21 11:09] LABS: MEAN PLATELET VOLUME 9.9 fL (9.0-12.2); WHITE BLOOD COUNT 7.1 10^3/uL (4.3-11.0)
[2020-10-21 11:25] LABS: ALBUMIN 4.2 GM/DL (3.2-4.5); BILIRUBIN,TOTAL 0.4 MG/DL (0.1-1.0); CALCIUM 9.7 MG/DL (8.5-10.1); CREATININE SERUM 0.98 MG/DL (0.60-1.30); POTASSIUM 3.8 MMOL/L (3.6-5.0); TOTAL PROTEIN 7.7 GM/DL (6.4-8.2)
== END ==
LOC: LAB 10:37
PROVIDERS: ATTEND Physician Assistant
DX: H93.19 Tinnitus, unspecified ear (principal); R11.0 Nausea; R42 Dizziness and giddiness
CPT/HCPCS: 36415; 80053; 83036; 84443; 85027; 85652; 86141

== ENCOUNTER → 2020-11-12 | Outpatient (CLI) | payer OTHER ==
[~2020-11-12] MED LIST changes: +GADOBUTROL 10 MMOL/10 ML (GADAVIST) VIAL IV ONE
--- NOTE | 2020-11-12 10:29 | Diagnostic Imaging Report ---
PROCEDURE: MR imaging of the brain with and without contrast. TECHNIQUE: Multiplanar, multisequence MR imaging of the brain was performed with and without contrast. INDICATION: Headaches and dizziness. The ventricles and sulci are within normal limits. Mild periventricular white matter changes are noted, likely on the basis of chronic microvascular ischemia. There is no diffusion restriction. The normal expected flow-voids within the carotid siphons are seen. No acute intra-axial or extra-axial hemorrhage is detected. Corpus callosum is unremarkable. Sella and parasellar structures are unremarkable. No abnormal enhancement following contrast administration is seen. IMPRESSION: Mild periventricular white matter changes, likely on the basis of chronic microvascular ischemia. No acute intracranial process is detected. Dictated by: Dictated on workstation # [id number]
--- NOTE | 2020-11-12 10:35 | Diagnostic Imaging Report ---
PROCEDURE: MR angiography neck with and without contrast. TECHNIQUE: Pre and post contrast-enhanced MR angiography of the neck was performed. Source data was reformatted into rotating MIP projections. INDICATION: Headaches and dizziness. FINDINGS: Both common carotid arteries appear to be widely patent. The carotid bifurcations are unremarkable. The internal carotid arteries appear to be widely patent. Left vertebral artery appears to be dominant. The right vertebral artery is very small and difficult to visualize. IMPRESSION: Poorly visualized right vertebral artery, likely very small. Remainder of the MRA of the neck is unremarkable. No carotid stenosis is identified. Dictated by: Dictated on workstation # [id number]
--- NOTE | 2020-11-12 10:39 | Diagnostic Imaging Report ---
PROCEDURE: MR angiography of the brain without the use of contrast. TECHNIQUE: 3D tumy-[id number] non contrast enhanced MR angiography of the head was performed. A source data was reformatted into rotating MIP projections. INDICATION: Headaches and dizziness. FINDINGS: Right and left distal internal carotid arteries are widely patent. The carotid siphons appear to be widely patent. Right and left middle cerebral arteries are unremarkable. No definite stenosis or aneurysm is seen. Right and left anterior cerebral arteries are unremarkable. ACOM is unremarkable without evidence of aneurysm. The basilar is patent. No basilar tip aneurysm is seen. Right and left posterior cerebral arteries appear to be patent. No vascular malformation is identified. IMPRESSION: Unremarkable MRA of the brain. Dictated by: Dictated on workstation # [id number]
== END ==
LOC: RAD 08:45
PROVIDERS: ATTEND Physician Assistant
DX: R90.82 White matter disease, unspecified (principal); R51.9 Headache, unspecified; H53.9 Unspecified visual disturbance; R93.0 Abnormal findings on diagnostic imaging of skull and head, not elsewhere classified
CPT/HCPCS: 70544; 70549; 70553

== ENCOUNTER → 2020-12-23 | Outpatient (CLI) | payer OTHER ==
[~2020-12-23] VITALS: Ht 165 cm; Wt 109.0 kg
[~2020-12-23] MED LIST changes: +CATHETER FLUSH 10 ML SYR IV PRN; -GADOBUTROL 10 MMOL/10 ML (GADAVIST) VIAL IV ONE; +REGADENOSON 0.4 MG/5 ML SYR (LEXISCAN) IV ONE
[2020-12-23 13:02] VITALS: BP 151/74
--- NOTE | 2020-12-24 08:44 | Cardiology Stress Test Report ---
Stress Test Report Date of Procedure/Referring: Date of Procedure: Dec 23, 2020 Veda Casillas Admitting Physician Jl Flynn MD Indications: Chest pain Baseline Heart Rate: 78 Baseline Blood Pressure: Blood Pressure Systolic: 151 Blood Pressure Diastolic: 74 Baseline Vitals Vital Signs Date Time Temp Pulse Resp B/P (MAP) Pulse Ox O2 Delivery O2 Flow Rate FiO2 12/23/20 13:02 69 151/74 (99) 99 Baseline EKG: Baseline EKG: normal sinus rhythm Summary After explaining the procedure to the patient, she signed a consent and then brought to the stress nuclear laboratory. Patient received 0.4 mg Lexiscan for stress test, ECG, heart rate and blood pressure were monitored continuously. Resting and stress dose of radio tracer were injected, imaging was acquired and reviewed in short axis, horizontal long axis and vertical long axis views. TID: 1.07 SSS: 4 SDS: 4 EF: 68 1. Patient tolerated Lexiscan well 2. No EKG changes noted during test 3. Breast attenuation with mild decrease uptake at the basal anterior wall and anterolateral wall with subtle reversibility, probably due to breast attenuation, no significant ischemia or infarction on SPECT images 4. Normal left ventricular size, EF 68 percent LUDWIN HINES MD Dec 24, 2020 08:44
== END ==
LOC: CARD 12:00
PROVIDERS: ATTEND Physician Assistant
DX: I08.1 Rheumatic disorders of both mitral and tricuspid valves (principal)
CPT/HCPCS: 78452; 93017; 93306; A9502

== ENCOUNTER → 2021-01-13 | Outpatient (CLI) | payer OTHER ==
[~2021-01-13] MED LIST changes: -CATHETER FLUSH 10 ML SYR IV PRN; -REGADENOSON 0.4 MG/5 ML SYR (LEXISCAN) IV ONE
--- NOTE | 2021-01-13 11:54 | Diagnostic Imaging Report ---
INDICATION: Status post fall onto back with pain across the anterior and mid rib area. TECHNIQUE: Single view chest along with 5 radiograph bilateral ribs, 11:29 AM. CORRELATION STUDY: Chest 09/06/2017 FINDINGS: The heart size, mediastinal configuration and pulmonary vascularity are within normal limits. Likely minimal left basilar discoid atelectasis. On a single view only, there is suggestion slight offset anterior right 5th rib suspect for subtle nondisplaced fracture. Remaining ribs otherwise appear to be intact. IMPRESSION: 1. Negative for acute abnormality of the chest. 2. Questionable nondisplaced anterior right 5th rib fracture. Dictated by: Dictated on workstation # [id number]
== END ==
LOC: RAD 10:52
PROVIDERS: ATTEND Physician Assistant
DX: R07.81 Pleurodynia (principal); Z91.81 History of falling
CPT/HCPCS: 71111

== ENCOUNTER → 2021-01-13 | Outpatient (CLI) | payer OTHER | LOC: CANPRECLI → RAD 10:50 | PROVIDERS: ATTEND Physician Assistant ==

== ENCOUNTER → 2021-01-14 | Outpatient (CLI) | payer OTHER ==
--- NOTE | 2021-01-14 13:29 | Diagnostic Imaging Report ---
PROCEDURE: CT chest without contrast. TECHNIQUE: Multiple contiguous axial images were obtained through the chest without the use of intravenous contrast. Auto Exposure Controls were utilized during the CT exam to meet ALARA standards for radiation dose reduction. INDICATION: Anterior rib pain. COMPARISON: Chest and rib radiographs 01/13/2021. FINDINGS: Mild linear atelectasis or scarring in the left lung base. The lungs are otherwise clear. No pleural effusion or pneumothorax. Borderline heart size. No pericardial effusion. No mediastinal, hilar or axillary lymphadenopathy. Visualized upper abdominal contents are unremarkable. Minimally displaced right anterior lateral 5th and 6th rib fractures appear acute. Osseous structures are otherwise intact. IMPRESSION: 1. Acute-appearing minimally displaced right anterolateral 5th and 6th rib fractures. 2. No other acute CT findings in the chest. There is only mild linear atelectasis or scarring in the left lung base. Dictated by: Dictated on workstation # [id number]
== END ==
LOC: RAD 11:24
PROVIDERS: ATTEND Physician Assistant
DX: S22.41XA Multiple fractures of ribs, right side, initial encounter for closed fracture (principal); W19.XXXA Unspecified fall, initial encounter
CPT/HCPCS: 71250

== ENCOUNTER → 2021-03-29 | Outpatient (CLI) | payer OTHER ==
--- NOTE | 2021-03-29 10:54 | Diagnostic Imaging Report ---
INDICATION: Routine screening. COMPARISON: 03/27/2020 and 03/08/2019. TECHNIQUE: 2D and 3D bilateral screening mammography was performed with CAD. FINDINGS: Scattered fibroglandular densities are identified bilaterally. The parenchymal pattern is stable. No mass or malignant appearing microcalcifications are seen. The axillae are unremarkable. IMPRESSION: No mammographic features suspicious for malignancy are identified. ACR BI-RADS Category 1: Negative. Result letter will be mailed to the patient. Note: At least 10% of breast cancer is not imaged by mammography. Dictated by: Dictated on workstation # [id number]
== END ==
LOC: RAD 07:45
PROVIDERS: ATTEND Nurse Practitioner Family
DX: Z12.31 Encounter for screening mammogram for malignant neoplasm of breast (principal)
CPT/HCPCS: 77063; 77067

== ENCOUNTER 2021-04-01 10:22 | Outpatient (RCR) | payer OTHER | END 2021-04-01 11:38 | disposition home or self-care (01) | PROVIDERS: ATTEND Physician Assistant | DX: S22.41XA Multiple fractures of ribs, right side, initial encounter for closed fracture (principal); M54.2 Cervicalgia; W19.XXXA Unspecified fall, initial encounter ==

== ENCOUNTER → 2021-04-01 | Outpatient (CLI) | payer OTHER ==
[2021-04-01 07:55] LABS: BASOPHILS # (AUTO) 0.1 10^3/uL (0.0-0.1); BASOPHILS % (AUTO) 1 % (0-10); EOSINOPHILS # (AUTO) 0.2 10^3/uL (0.0-0.3); EOSINOPHILS % (AUTO) 3 % (0-10); HEMATOCRIT 42 % (35-52); HEMOGLOBIN 13.8 g/dL (11.5-16.0); LYMPHOCYTES # (AUTO) 2.4 10^3/uL (1.0-4.0); LYMPHOCYTES % (AUTO) 42 % (12-44); MEAN CORPUSCULAR HEMOGLOBIN 30 pg (25-34); MEAN CORPUSCULAR HGB CONC 33 g/dL (32-36); MEAN CORPUSCULAR VOLUME 90 fL (80-99); MEAN PLATELET VOLUME 9.7 fL (9.0-12.2); MONOCYTES # (AUTO) 0.5 10^3/uL (0.0-1.0); MONOCYTES % (AUTO) 9 % (0-12); NEUTROPHILS # (AUTO) 2.5 10^3/uL (1.8-7.8); NEUTROPHILS % (AUTO) 45 % (42-75); PLATELET COUNT 289 10^3/uL (130-400); WHITE BLOOD COUNT 5.7 10^3/uL (4.3-11.0)
[2021-04-01 08:16] LABS: ALANINE AMINOTRANSFERASE 17 U/L (0-55); ALKALINE PHOSPHATASE 98 U/L (40-136); BILIRUBIN,TOTAL 0.5 MG/DL (0.1-1.0); BUN/CREATININE RATIO 17; CALCIUM 9.8 MG/DL (8.5-10.1); CARBON DIOXIDE 24 MMOL/L (21-32); CHLORIDE 106 MMOL/L (98-107); CHOLESTEROL 226 MG/DL (< 200); CREATININE SERUM 0.83 MG/DL (0.60-1.30); GFR ESTIMATED > 60; GLUCOSE 106 MG/DL (70-105); HDL CHOLESTEROL 50 MG/DL (40-60); POTASSIUM 4.2 MMOL/L (3.6-5.0); SODIUM 138 MMOL/L (135-145); TOTAL PROTEIN 7.2 GM/DL (6.4-8.2); TRIGLYCERIDES 167 MG/DL (<150); VLDL CHOLESTEROL 33 MG/DL (5-40)
== END ==
LOC: LAB 07:26
PROVIDERS: ATTEND Internal Medicine
DX: I10 Essential (primary) hypertension (principal); E78.2 Mixed hyperlipidemia; E11.9 Type 2 diabetes mellitus without complications; J44.9 Chronic obstructive pulmonary disease, unspecified
CPT/HCPCS: 36415; 80053; 80061; 83036; 84443; 85025

== ENCOUNTER 2021-05-18 10:01 | Outpatient (CLI) | payer OTHER ==
[~2021-05-18] VITALS: Ht 165.1 cm; Wt 102.2 kg
[~2021-05-18 10:01] MED LIST changes: -OMEP40CA27 PO; +OMEP40CA6 PO
[2021-05-18] MEDS ORDERED: L.AC1CAP6 PO (10:43)
[2021-05-18] MEDS ORDERED: FAMO40TA72 PO (10:43)
[2021-05-18] MEDS ORDERED: OMG1KC PO (10:43)
[2021-05-18] MEDS ORDERED: MTP25TSR PO (10:43)
== END 2021-05-18 11:39 ==
LOC: PREOP 10:01
PROVIDERS: ATTEND Surgery
DX: Z01.812 Encounter for preprocedural laboratory examination (principal); K21.9 Gastro-esophageal reflux disease without esophagitis; Z20.822 Contact with and (suspected) exposure to COVID-19
CPT/HCPCS: 87635

== ENCOUNTER 2021-05-19 13:26 | Day surgery (SDC) | payer OTHER ==
[~2021-05-19] VITALS: Ht 165.1 cm; Wt 102.2 kg
[~2021-05-19 13:26] MED LIST changes: +FAMO40TA72 PO; +L.AC1CAP6 PO; +MTP25TSR PO; +OMG1KC PO
[2021-05-19 13:35] VITALS: BP 150/85
[2021-05-19] MEDS ORDERED: LACTATED RINGERS 1,000 ML IV ONE (13:38)
[2021-05-19] MEDS ORDERED: HURRICAINE EXT TUBE (BENZOCAINE) XX PRN (14:15)
[2021-05-19] MEDS ORDERED: LIDOCAINE JELLY 2% 6 ML SYRINGE MM PRN (14:15)
[2021-05-19] MEDS ORDERED: LACTATED RINGERS 1,000 ML IV PRN (14:15)
[2021-05-19] MEDS ORDERED: proPOfol 200 MG/20 ML (DIPRIVAN) VIAL IV ONE (14:45)
[2021-05-19] MEDS ORDERED: MIDAZOLAM 2 MG/2 ML (VERSED) VIAL ONE (14:58)
[2021-05-19 15:30] VITALS: BP 132/60
[2021-05-19 15:55] VITALS: BP 135/63
--- NOTE | 2021-05-19 15:57 | Anesthesia-General Post-Op ---
MAC Patient Condition Mental Status/LOC: Same as Preop Cardiovascular: Satisfactory Nausea/Vomiting: Absent Respiratory: Satisfactory Pain: Controlled Complications: Absent Post Op Complications Complications None Follow Up Care/Instructions Patient Instructions None needed. Anesthesiology Discharge Order Discharge Order Patient is doing well, no complaints, stable vital signs, no apparent adverse anesthesia problems. No complications reported per nursing. MIKAL MCQUEEN CRNA May 19, 2021 15:57
[2021-05-19 16:25] VITALS: BP 135/63
--- NOTE | 2021-05-19 21:28 | OPERATIVE REPORT ---
DATE OF SERVICE: 05/19/2021 ATTENDING PRIMARY CARE PHYSICIAN: Jl Flynn MD PREOPERATIVE DIAGNOSES: Epigastric pain, reflux, dysphagia. POSTOPERATIVE DIAGNOSES: Reflux esophagitis between stage II and III, small hiatal hernia approximately 1.5 cm in size, mild to moderate gastritis, normal duodenum, mild distal esophageal stricture. PROCEDURE: EGD with biopsy and balloon dilatation. SURGEON: Shanti Cota MD ANESTHESIA: Monitored anesthesia care. ESTIMATED BLOOD LOSS: Minimal. FINDINGS: Reflux esophagitis between stage II and III, small hiatal hernia approximately 1.5 cm in size, mild to moderate gastritis, normal duodenum, mild distal esophageal stricture. DISPOSITION: The patient tolerated the procedure well. INDICATIONS: The patient is a 60-year-old female who has had a history of epigastric burning sensation as well as gastroesophageal reflux disease; however, this has worsened over time and she has been seen by cardiology and cardiac source has been ruled out. She states that the pain tends to be worse at night. She also does have some dysphagia for some types of foods as well. She does have a history of smoking; however, quit in 2017. Currently, she is on Pepcid 20 mg b.i.d. DESCRIPTION OF PROCEDURE: The patient was brought to the endoscopy suite, laid in the left lateral decubitus position. After adequate IV pain and sedative medications and monitored anesthesia care, the mouthpiece was applied. The endoscope was placed in the mouth, visualizing the pharynx and hypopharyngeal region. Vocal cords, epiglottis and vallecula identified and appeared to be normal. The endoscope was then gently abated esophageal opening and esophagus insufflated. The endoscope was then advanced through the first, second and third portion of esophagus. At the level of GE junction, significant reflux esophagitis between stage II and III identified. There was also mild distal esophageal stricture identified. Biopsies were taken of the GE junction with forceps with visualization of good hemostasis. The endoscope was then advanced in the stomach and endoscope retroflexed, visualizing a small hiatal hernia approximately 1.5 cm in size. There was a mild to moderate gastritis. No formal ulcerations, polyps, or any neoplasms. Biopsy was taken of the antrum to rule out H. pylori with visualization of good hemostasis. The endoscope was then advanced to the pylorus and first and second portion of the duodenum, which appeared normal and no distal obstructions. We then proceeded with balloon dilatation of the distal esophageal stricture and the balloon was placed into the stomach and pulled back to the area of stricture. We then proceeded gradual stepwise fashion from 2, 4, then 6 atmospheres of pressure or 20 mm in luminal diameter and left this in place for approximately 60 seconds. The balloon was then desufflated and removed with visualization of good hemostasis as well as no mucosal tears. Endoscope was then slowly withdrawn while taking a second look and suctioning of residual air with no additional findings. The patient tolerated the procedure well. Due to the significant reflux esophagitis, we will recommend the necessary lifestyle and diet accommodation including small and more frequent meals, avoidance of eating at night as well as head elevation while lying supine. She also needs to avoid caffeinated beverages, spicy, greasy and acidic foods. We will also proceed with starting her on Protonix 40 mg daily. We will await the biopsy results as well. Job ID: [id number] DocumentID: [id number] Dictated Date: 05/19/2021 15:36:40 Service Technician Copier Date: 05/19/2021 21:28:00 Dictated By: SHANTI COTA MD
== END 2021-05-19 16:25 | disposition home or self-care (01) ==
LOC: ENDO 13:26
PROVIDERS: ATTEND Surgery
DX: K21.00 Gastro-esophageal reflux disease with esophagitis, without bleeding (principal); K44.9 Diaphragmatic hernia without obstruction or gangrene; K22.2 Esophageal obstruction; K29.70 Gastritis, unspecified, without bleeding; I10 Essential (primary) hypertension; Z79.899 Other long term (current) drug therapy
CPT/HCPCS: 88305

== ENCOUNTER → 2021-08-09 | Outpatient (CLI) | payer OTHER ==
[2021-08-09 09:28] LABS: ALBUMIN 4.2 GM/DL (3.2-4.5); BILIRUBIN,TOTAL 0.6 MG/DL (0.1-1.0); CALCIUM 10.3 MG/DL (8.5-10.1); CREATININE SERUM 0.85 MG/DL (0.60-1.30); POTASSIUM 4.4 MMOL/L (3.6-5.0); TOTAL PROTEIN 7.9 GM/DL (6.4-8.2)
== END ==
LOC: LAB 08:46
PROVIDERS: ATTEND Internal Medicine
DX: E11.9 Type 2 diabetes mellitus without complications (principal); I10 Essential (primary) hypertension; E78.5 Hyperlipidemia, unspecified
CPT/HCPCS: 36415; 80053; 83036

== ENCOUNTER → 2021-08-24 | Outpatient (CLI) | payer OTHER ==
[2021-08-24 10:15] LABS: CALCIUM 9.8 MG/DL (8.5-10.1); CREATININE SERUM 0.83 MG/DL (0.60-1.30); POTASSIUM 3.9 MMOL/L (3.6-5.0)
== END ==
LOC: LAB 09:23
PROVIDERS: ATTEND Internal Medicine
DX: R94.4 Abnormal results of kidney function studies (principal)
CPT/HCPCS: 36415; 80048

== ENCOUNTER 2022-01-19 11:00 | Emergency (ER) | payer OTHER ==
[~2022-01-19] VITALS: Ht 165 cm; Wt 104.0 kg
[2022-01-19] MEDS ORDERED: MECLIZINE 25 MG (ANTIVERT) TAB PO ONE (11:30)
--- NOTE | 2022-01-19 11:35 | ED General ---
General Chief Complaint: Dizziness/Syncope Stated Complaint: DIZZY Nursing Triage Note: ARRIVED VIA AMB WITH COMPLAINTS OF DIZZINESS. 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 She had some difficulty walking feeling off balance. Currently she does not have any nausea or dizziness. She does have a history of hyperlipidemia and is supposed to be on some fish oil but states she does not really take it. She did have an episode of vertigo a couple of years ago where she felt like she was spinning but this time she states she feels as though she was "on a boat". Timing/Duration: 1-2 Days, Intermittent Severity: Moderate Associated Systoms: Nausea/Vomiting (SURESH BROWN APRN) Allergies and Home Medications Allergies Coded Allergies: kiwi (Verified Allergy, Severe, ANAPHYLAXIS, 03/06/17) Patient Home Medication List Home Medication List Reviewed: Yes (SURESH BROWN APRN) Famotidine (Pepcid) 40 Mg Tablet, 40 MG PO DAILY, (Reported) Entered as Reported by: STAR SALGUERO on 05/18/21 1043 L.acidoph & Paracasei,B.lactis (Probiotic) 1 Each Capsule, 1 EACH PO DAILY, (Reported) Entered as Reported by: STAR SALGUERO on 05/18/21 1043 Levalbuterol Tartrate (Xopenex Hfa) 15 Gm Hfa.aer.ad, 2 PUFF IH Q4H PRN for SHORTNESS OF BREATH, (Reported) Entered as Reported by: PAULA GRACE on 09/06/17 0903 Meclizine HCl (Meclizine HCl) 25 Mg Tablet, 25 MG PO TID Prescribed by: SURESH BROWN on 01/19/22 1307 Metoprolol Succinate (Metoprolol Succinate) 25 Mg Tab.er.24h, 25 MG PO DAILY, (Reported) Entered as Reported by: STAR SALGUERO on 05/18/21 1043 [place] 3 Polyunsat Fatty Acids (Fish Oil 1,000 mg Capsule) 1,000 Mg Cap, 1,000 MG PO DAILY, (Reported) Entered as Reported by: STAR SALGUERO on 05/18/21 1043 Review of Systems Review of Systems Constitutional: see HPI, dizziness EENTM: see HPI Respiratory: no symptoms reported Cardiovascular: no symptoms reported Genitourinary: no symptoms reported Musculoskeletal: no symptoms reported Skin: no symptoms reported Psychiatric/Neurological: No Symptoms Reported Hematologic/Lymphatic: No Symptoms Reported Immunological/Allergic: no symptoms reported (SURESH BROWN APRN) Past Wlibmqb-Rbyccg-Klfzgt Hx Patient Social History Smoking Status: Former Smoker Substance use?: No Alcohol Use?: No (SURESH BROWN APRN) Immunizations Up To Date COVID19 Vaccine First Helper: PHIZER (SURESH BROWN APRN) Seasonal Allergies Seasonal Allergies: No (SURESH BROWN APRN) Past Medical History Surgeries: No Tonsillectomy, Tubal Ligation Respiratory: Yes (NEWLY DIAGNOSED WITH "STAGE 1" LUNG DISEASE) Cardiac: No Neurological: No Reproductive Disorders: No Sexually Transmitted Disease: No HIV/AIDS: No Kidney Stones Gastrointestinal: No Gastroesophageal Reflux, Chronic Constipation, Chronic Diarrhea Musculoskeletal: No Arthritis Endocrine: No HEENT: Yes (TAKES EYE GTTS) Loss of Vision: Bilateral Hearing Impairment: Denies Cancer: No Psychosocial: No Integumentary: No Blood Disorders: No Adverse Reaction/Blood Tranf: No (N/A) (SURESH BROWN APRN) Physical Exam Vital Signs Vital Signs - First Documented 01/19/22 11:10 Temp 35.3 Pulse 78 Resp 16 B/P (MAP) 177/83 (114) Pulse Ox 97 O2 Delivery Room Air (JW TREVIZO MD) Vital Signs Capillary Refill : Less Than 3 Seconds (SURESH BROWN APRN) Height, Weight, BMI Height: 5'5.00" Weight: 185lbs. 0.0oz. 83.375381lk; 38.00 BMI Method:Stated General Appearance: No Apparent Distress, WD/WN Eyes: Bilateral Eye Normal Inspection, Bilateral Eye PERRL, Bilateral Eye EOMI HEENT: PERRL/EOMI, TMs Normal, Other (No nystagmus alert and oriented very pleasant) Neck: Full Range of Motion, Normal Inspection Respiratory: No Accessory Muscle Use, No Respiratory Distress Gastrointestinal: Normal Bowel Sounds, Non Tender, Soft Extremity: Normal Capillary Refill, Normal Inspection Neurologic/Psychiatric: Alert, Oriented x3 Skin: Normal Color, Warm/Dry (SURESH BROWN APRN) Progress/Results/Core Measures Suspected Sepsis SIRS Temperature: Pulse: 78 Respiratory Rate: 16 Laboratory Tests 01/19/22 11:47: White Blood Count 6.5 Blood Pressure 177 /83 Mean: 114 Laboratory Tests 01/19/22 11:47: Creatinine 0.76, Platelet Count 298, Total Bilirubin 0.4 (SURESH BROWN APRN) Results/Orders Lab Results Laboratory Tests Test 01/19/22 11:47 01/19/22 12:05 Range/Units White Blood Count 6.5 4.3-11.0 10^3/uL Red Blood Count 4.93 3.80-5.11 10^6/uL Hemoglobin 14.5 11.5-16.0 g/dL Hematocrit 45 35-52 % Mean Corpuscular Volume 91 80-99 fL Mean Corpuscular Hemoglobin 29 25-34 pg Mean Corpuscular Hemoglobin Concent 32 32-36 g/dL Red Cell Distribution Width 13.6 10.0-14.5 % Platelet Count 298 130-400 10^3/uL Mean Platelet Volume 9.8 9.0-12.2 fL Immature Granulocyte % (Auto) 0 % Neutrophils (%) (Auto) 46 42-75 % Lymphocytes (%) (Auto) 43 12-44 % Monocytes (%) (Auto) 8 0-12 % Eosinophils (%) (Auto) 2 0-10 % Basophils (%) (Auto) 1 0-10 % Neutrophils # (Auto) 3.0 1.8-7.8 10^3/uL Lymphocytes # (Auto) 2.8 1.0-4.0 10^3/uL Monocytes # (Auto) 0.5 0.0-1.0 10^3/uL Eosinophils # (Auto) 0.1 0.0-0.3 10^3/uL Basophils # (Auto) 0.1 0.0-0.1 10^3/uL Immature Granulocyte # (Auto) 0.0 0.0-0.1 10^3/uL Sodium Level 139 135-145 MMOL/L Potassium Level 4.2 3.6-5.0 MMOL/L Chloride Level 106 98-107 MMOL/L Carbon Dioxide Level 21 21-32 MMOL/L Anion Gap 12 5-14 MMOL/L Blood Urea Nitrogen 16 7-18 MG/DL Creatinine 0.76 0.60-1.30 MG/DL Estimat Glomerular Filtration Rate 90 BUN/Creatinine Ratio 21 Glucose Level 93 70-105 MG/DL Calcium Level 9.9 8.5-10.1 MG/DL Corrected Calcium 9.8 8.5-10.1 MG/DL Magnesium Level 2.0 1.6-2.4 MG/DL Total Bilirubin 0.4 0.1-1.0 MG/DL Aspartate Amino Transf (AST/SGOT) 19 5-34 U/L Alanine Aminotransferase (ALT/SGPT) 20 0-55 U/L Alkaline Phosphatase 96 40-136 U/L Total Protein 7.4 6.4-8.2 GM/DL Albumin 4.1 3.2-4.5 GM/DL Urine Color YELLOW Urine Clarity CLEAR Urine pH 7.0 5-9 Urine Specific [place] <=1.005 1.016-1.022 Urine Protein NEGATIVE NEGATIVE Urine Glucose (UA) NEGATIVE NEGATIVE Urine Ketones NEGATIVE NEGATIVE Urine Nitrite NEGATIVE NEGATIVE Urine Bilirubin NEGATIVE NEGATIVE Urine Urobilinogen 0.2 < = 1.0 MG/DL Urine Leukocyte Esterase NEGATIVE NEGATIVE Urine RBC (Auto) 1+ H NEGATIVE Urine RBC RARE /HPF Urine WBC NONE /HPF Urine Squamous Epithelial Cells RARE /HPF Urine Crystals NONE /LPF Urine Bacteria TRACE /HPF Urine Casts NONE /LPF Urine Mucus NEGATIVE /LPF Urine Culture Indicated NO (JW TREVIZO MD) Vital Signs/I&O 01/19/22 01/19/22 11:10 13:36 Temp 35.3 Pulse 78 72 Resp 16 16 B/P (MAP) 177/83 (114) 146/83 Pulse Ox 97 98 O2 Delivery Room Air Room Air (JW TREVIZO MD) Vital Signs/I&O Capillary Refill : Less Than 3 Seconds (SURESH BROWN APRN) Blood Pressure Mean: 114 Departure Communication (Admissions) NAME: ZEESHAN HENNESSY [facility] REC#: [id number] PT STATUS: REG ER : 1960 PHYSICIAN: SURESH BORWN APRN ADMIT DATE: 01/19/22/ER Draft Date of Exam:01/19/22 CT ANGIO HEAD/NECK PROCEDURE: CT angiography of the head and CT angiography of the neck with and without contrast. TECHNIQUE: Contiguous noncontrast images were obtained from the skull base through the vertex. After intravenous contrast administration, helical CT angiography of the neck was performed. Source data was reformatted into 3D MIP projections. Delayed post contrast acquisition was also obtained. Auto Exposure Controls were utilized during the CT exam to meet ALARA standards for radiation dose reduction. INDICATION: Sore throat, neck pain, and vertigo. FINDINGS: CT HEAD: Precontrast and delayed post contrast enhanced head CT reveals no hemorrhage, hydrocephalus, edema, mass, or mass effect. There was no abnormal parenchymal or meningeal enhancement after contrast. An old left frontal lobe subcortical Virchow-Román space or old lacunar infarct is chronic and stable. There is some mild chronic periventricular white matter disease, stable. No edema or acute finding. There is enhancement of the major dural venous sinuses. CT ANGIO NECK: The aortic arch and the branching pattern of the great vessels are unremarkable. The left vertebral is dominant. The right small on a congenital basis. No acute vertebral pathology. There are scattered calcified plaques in the distal common carotids extending through the bulbs and bifurcations where there is roughly 50% left and 30% right luminal stenosis. The cervical internal carotids above that level have a tortuous course but are widely patent. CT ANGIO HEAD: The dominant left vertebral artery is patent through the basilar. A smaller right vertebral artery terminates as the PICA as a variant. The basilar itself is patent and unremarkable. The bilateral PHOTOGRAPH MOUNTER segments are patent and unremarkable. There are calcified plaques in the intracranial ICAs without hemodynamically significant focal stenosis. The A1 segments, ACOM, and the anterior cerebral arteries are unremarkable. The bilateral middle cerebral arterial segments and primary branches show no thrombus, large vessel occlusion, aneurysm, or vascular malformation. There are advanced degenerative changes throughout the cervical spine. No acute appearing bony pathology. The soft tissues of the neck show no suspicious mass, adenopathy, abscess, or fluid collection. IMPRESSION: Cervical and intracranial atherosclerotic disease. No high-grade stenosis. No thrombus or large vessel occlusion. No aneurysm or acute arterial pathology. Dictated on workstation # [id number] Dict: 01/19/22 1307 Trans: 01/19/22 1319 [id number] Interpreted by: LUDWIG BARRAGAN Electronically signed by: (SURESH BROWN APRN) Impression Primary Impression: Vertigo Disposition: 01 HOME, SELF-CARE Condition: Stable Departure-Patient Inst. Decision time for Depature: 13:07 (SURESH BROWN APRN) Referrals: NATE CLIFFORD MD (PCP/Family) Primary Care Physician Patient Instructions: Vertigo (a Type of Dizziness) (DC) Add. Discharge Instructions: 1. Take the dizziness medication as directed. Return to ER for any concerns. All discharge instructions reviewed with patient and/or family. Voiced und erstanding. Scripts Meclizine HCl (Meclizine HCl) 25 Mg Tablet 25 MG PO TID, #14 TAB Prov: SURESH BROWN APRN 01/19/22 ATTENDING PHYSICIAN NOTE: I was physically present as attending physician in the emergency department during the care of this patient, but I was not directly involved in the decision making or delivery of care for this patient. (JW TREVIZO MD) SURESH BROWN APRN Jan 19, 2022 11:34 JW TREVIZO MD Jan 21, 2022 19:40
[2022-01-19 11:59] LABS: BASOPHILS # (AUTO) 0.1 10^3/uL (0.0-0.1); BASOPHILS % (AUTO) 1 % (0-10); EOSINOPHILS # (AUTO) 0.1 10^3/uL (0.0-0.3); EOSINOPHILS % (AUTO) 2 % (0-10); HEMATOCRIT 45 % (35-52); HEMOGLOBIN 14.5 g/dL (11.5-16.0); LYMPHOCYTES # (AUTO) 2.8 10^3/uL (1.0-4.0); LYMPHOCYTES % (AUTO) 43 % (12-44); MEAN CORPUSCULAR HEMOGLOBIN 29 pg (25-34); MEAN CORPUSCULAR HGB CONC 32 g/dL (32-36); MEAN CORPUSCULAR VOLUME 91 fL (80-99); MEAN PLATELET VOLUME 9.8 fL (9.0-12.2); MONOCYTES # (AUTO) 0.5 10^3/uL (0.0-1.0); MONOCYTES % (AUTO) 8 % (0-12); NEUTROPHILS % (AUTO) 46 % (42-75); PLATELET COUNT 298 10^3/uL (130-400); WHITE BLOOD COUNT 6.5 10^3/uL (4.3-11.0)
[2022-01-19] MEDS ORDERED: IOHEXOL 350 MG/ML 100 ML (OMNIPAQUE 350) VIAL IV ONE ×2 (12:00→12:45)
[2022-01-19] MEDS ORDERED: HOLD METFORMIN - RECEIVED CONTRAST 20 ML VIAL IV SCH ×2 (12:00→12:45)
[2022-01-19] MEDS ORDERED: NS 100 ML (IVPB) BAG IV ONE ×2 (12:00→12:45)
[2022-01-19] MEDS ORDERED: CATHETER FLUSH 10 ML SYR IV PRN ×2 (12:00→12:45)
[2022-01-19 12:10] LABS: ALBUMIN 4.1 GM/DL (3.2-4.5); POTASSIUM 4.2 MMOL/L (3.6-5.0)
[2022-01-19 12:11] LABS: CALCIUM 9.9 MG/DL (8.5-10.1)
[2022-01-19 12:13] LABS: TOTAL PROTEIN 7.4 GM/DL (6.4-8.2)
[2022-01-19 12:15] LABS: BILIRUBIN,TOTAL 0.4 MG/DL (0.1-1.0)
[2022-01-19 12:16] LABS: CREATININE SERUM 0.76 MG/DL (0.60-1.30)
[2022-01-19 12:20] LABS: BILIRUBIN,URINE NEGATIVE (NEGATIVE); CLARITY,URINE CLEAR; COLOR,URINE YELLOW; GLUCOSE, URINE (UA) NEGATIVE (NEGATIVE); KETONES,URINE NEGATIVE (NEGATIVE); LEUKOCYTE ESTERASE ,URINE NEGATIVE (NEGATIVE); NITRITE,URINE NEGATIVE (NEGATIVE); PROTEIN,URINE NEGATIVE (NEGATIVE)
[2022-01-19 12:33] LABS: BACTERIA,URINE TRACE /HPF; RBC,URINE RARE /HPF; SQUAMOUS EPITHELIAL CELL,UR RARE /HPF
[2022-01-19] MEDS ORDERED: MECL-149 PO (13:07)
--- NOTE | 2022-01-19 13:20 | Diagnostic Imaging Report ---
PROCEDURE: CT angiography of the head and CT angiography of the neck with and without contrast. TECHNIQUE: Contiguous noncontrast images were obtained from the skull base through the vertex. After intravenous contrast administration, helical CT angiography of the neck was performed. Source data was reformatted into 3D MIP projections. Delayed post contrast acquisition was also obtained. Auto Exposure Controls were utilized during the CT exam to meet ALARA standards for radiation dose reduction. INDICATION: Sore throat, neck pain, and vertigo. FINDINGS: CT HEAD: Precontrast and delayed post contrast enhanced head CT reveals no hemorrhage, hydrocephalus, edema, mass, or mass effect. There was no abnormal parenchymal or meningeal enhancement after contrast. An old left frontal lobe subcortical Virchow-Román space or old lacunar infarct is chronic and stable. There is some mild chronic periventricular white matter disease, stable. No edema or acute finding. There is enhancement of the major dural venous sinuses. CT ANGIO NECK: The aortic arch and the branching pattern of the great vessels are unremarkable. The left vertebral is dominant. The right small on a congenital basis. No acute vertebral pathology. There are scattered calcified plaques in the distal common carotids extending through the bulbs and bifurcations where there is roughly 50% left and 30% right luminal stenosis. The cervical internal carotids above that level have a tortuous course but are widely patent. CT ANGIO HEAD: The dominant left vertebral artery is patent through the basilar. A smaller right vertebral artery terminates as the PICA as a variant. The basilar itself is patent and unremarkable. The bilateral MANAGER ANIMAL segments are patent and unremarkable. There are calcified plaques in the intracranial ICAs without hemodynamically significant focal stenosis. The A1 segments, ACOM, and the anterior cerebral arteries are unremarkable. The bilateral middle cerebral arterial segments and primary branches show no thrombus, large vessel occlusion, aneurysm, or vascular malformation. There are advanced degenerative changes throughout the cervical spine. No acute appearing bony pathology. The soft tissues of the neck show no suspicious mass, adenopathy, abscess, or fluid collection. IMPRESSION: Cervical and intracranial atherosclerotic disease. No high-grade stenosis. No thrombus or large vessel occlusion. No aneurysm or acute arterial pathology. Dictated by: Dictated on workstation # [id number]
[2022-01-19 13:36] VITALS: BP 146/83
[2022-01-19] MEDS ORDERED: SCOPOLAMINE 1.5 MG (TRANSDERM-SCOP) PATCH ONE (13:40)
[2022-01-19] MEDS ORDERED: SCOPOLAMINE 1.5 MG (TRANSDERM-SCOP) PATCH TD ONE (13:45)
[2022-01-19] MEDS ORDERED: LACTATED RINGERS 1,000 ML IV SCH (13:45)
== END 2022-01-19 13:36 | disposition home or self-care (01) ==
LOC: EDUNIT# 11:00 → ER 11:01
DX: R42 Dizziness and giddiness (principal); Z87.891 Personal history of nicotine dependence
CPT/HCPCS: 36415; 70496; 70498; 80053; 81000; 83735; 85025

== ENCOUNTER → 2022-01-25 | Outpatient (CLI) | payer OTHER ==
[~2022-01-25] MED LIST changes: +MECL-149 PO
[2022-01-25 10:13] LABS: BASOPHILS # (AUTO) 0.1 10^3/uL (0.0-0.1); BASOPHILS % (AUTO) 1 % (0-10); EOSINOPHILS # (AUTO) 0.2 10^3/uL (0.0-0.3); EOSINOPHILS % (AUTO) 3 % (0-10); HEMATOCRIT 43 % (35-52); HEMOGLOBIN 14.1 g/dL (11.5-16.0); LYMPHOCYTES # (AUTO) 2.6 10^3/uL (1.0-4.0); LYMPHOCYTES % (AUTO) 44 % (12-44); MEAN CORPUSCULAR HEMOGLOBIN 30 pg (25-34); MEAN CORPUSCULAR HGB CONC 33 g/dL (32-36); MEAN CORPUSCULAR VOLUME 90 fL (80-99); MEAN PLATELET VOLUME 9.7 fL (9.0-12.2); MONOCYTES # (AUTO) 0.5 10^3/uL (0.0-1.0); MONOCYTES % (AUTO) 9 % (0-12); NEUTROPHILS # (AUTO) 2.6 10^3/uL (1.8-7.8); NEUTROPHILS % (AUTO) 43 % (42-75); PLATELET COUNT 279 10^3/uL (130-400)
[2022-01-25 10:33] LABS: BILIRUBIN,TOTAL 0.5 MG/DL (0.1-1.0); CALCIUM 9.6 MG/DL (8.5-10.1); CREATININE SERUM 0.78 MG/DL (0.60-1.30); POTASSIUM 4.1 MMOL/L (3.6-5.0); TOTAL PROTEIN 7.4 GM/DL (6.4-8.2)
== END ==
LOC: LAB 09:57
PROVIDERS: ATTEND Physician Assistant
DX: E78.2 Mixed hyperlipidemia (principal); I10 Essential (primary) hypertension; E11.9 Type 2 diabetes mellitus without complications; R42 Dizziness and giddiness; E06.9 Thyroiditis, unspecified
CPT/HCPCS: 36415; 80053; 80061; 83036; 83735; 84443; 85025

== ENCOUNTER → 2022-05-05 | Outpatient (CLI) | payer OTHER ==
--- NOTE | 2022-05-05 13:45 | Diagnostic Imaging Report ---
INDICATION: Routine screening. COMPARISON is made with prior mammograms from 03/29/2021, 03/27/2020. 2-D and 3-D bilateral screening mammography was performed with CAD. Scattered fibroglandular densities are identified bilaterally. The parenchymal pattern is stable. No mass or malignant-appearing microcalcifications are seen. Axillae are unremarkable. IMPRESSION: BI-RADS Category 1 No mammographic features suspicious for malignancy are identified. ACR BI-RADS Category 1: Negative. Result letter will be mailed to the patient. Note: At least 10% of breast cancer is not imaged by mammography. Dictated by: Dictated on workstation # [id number]
== END ==
LOC: RAD 10:30
PROVIDERS: ATTEND Internal Medicine
DX: Z12.31 Encounter for screening mammogram for malignant neoplasm of breast (principal)
CPT/HCPCS: 77063; 77067

== ENCOUNTER → 2022-07-06 | Outpatient (CLI) | payer OTHER ==
[2022-07-06 12:09] LABS: POTASSIUM 3.9 MMOL/L (3.6-5.0)
[2022-07-06 12:10] LABS: ALBUMIN 4.3 GM/DL (3.2-4.5)
[2022-07-06 12:11] LABS: CALCIUM 10.1 MG/DL (8.5-10.1)
[2022-07-06 12:12] LABS: TOTAL PROTEIN 7.8 GM/DL (6.4-8.2)
[2022-07-06 12:14] LABS: BILIRUBIN,TOTAL 0.5 MG/DL (0.1-1.0)
[2022-07-06 12:16] LABS: CREATININE SERUM 0.79 MG/DL (0.60-1.30)
== END ==
LOC: LAB 10:36
PROVIDERS: ATTEND Internal Medicine Cardiovascular Disease
DX: K21.9 Gastro-esophageal reflux disease without esophagitis (principal); E78.2 Mixed hyperlipidemia; I10 Essential (primary) hypertension; I65.29 Occlusion and stenosis of unspecified carotid artery
CPT/HCPCS: 36415; 80053; 80061

== ENCOUNTER → 2022-07-06 | Outpatient (CLI) | payer OTHER ==
[2022-07-06 11:20] LABS: BASOPHILS # (AUTO) 0.1 10^3/uL (0.0-0.1); BASOPHILS % (AUTO) 1 % (0-10); EOSINOPHILS # (AUTO) 0.3 10^3/uL (0.0-0.3); EOSINOPHILS % (AUTO) 4 % (0-10); HEMATOCRIT 43 % (35-52); HEMOGLOBIN 14.1 g/dL (11.5-16.0); LYMPHOCYTES # (AUTO) 3.1 10^3/uL (1.0-4.0); LYMPHOCYTES % (AUTO) 43 % (12-44); MEAN CORPUSCULAR HEMOGLOBIN 30 pg (25-34); MEAN CORPUSCULAR HGB CONC 33 g/dL (32-36); MEAN CORPUSCULAR VOLUME 91 fL (80-99); MEAN PLATELET VOLUME 9.7 fL (9.0-12.2); MONOCYTES # (AUTO) 0.7 10^3/uL (0.0-1.0); MONOCYTES % (AUTO) 10 % (0-12); NEUTROPHILS % (AUTO) 42 % (42-75); PLATELET COUNT 319 10^3/uL (130-400); WHITE BLOOD COUNT 7.2 10^3/uL (4.3-11.0)
[2022-07-06 11:30] LABS: ALBUMIN 4.2 GM/DL (3.2-4.5); POTASSIUM 3.9 MMOL/L (3.6-5.0)
[2022-07-06 11:31] LABS: CALCIUM 10.2 MG/DL (8.5-10.1)
[2022-07-06 11:33] LABS: TOTAL PROTEIN 7.8 GM/DL (6.4-8.2)
[2022-07-06 11:34] LABS: BILIRUBIN,TOTAL 0.5 MG/DL (0.1-1.0)
[2022-07-06 11:36] LABS: CREATININE SERUM 0.8 MG/DL (0.60-1.30)
== END ==
LOC: RAD 10:42
PROVIDERS: ATTEND Internal Medicine
DX: Z13.29 Encounter for screening for other suspected endocrine disorder (principal); I10 Essential (primary) hypertension; E78.2 Mixed hyperlipidemia; E11.9 Type 2 diabetes mellitus without complications
CPT/HCPCS: 36415; 80053; 80061; 83036; 84443; 85025

== ENCOUNTER → 2022-08-10 | Outpatient (CLI) | payer OTHER | END | disposition home or self-care (01) | LOC: PREOP 05:37 | PROVIDERS: ATTEND Surgery | DX: Z01.818 Encounter for other preprocedural examination (principal) ==

== ENCOUNTER → 2022-10-18 | Outpatient (CLI) | payer OTHER ==
[2022-10-18 11:35] LABS: ALBUMIN 3.9 GM/DL (3.2-4.5); BILIRUBIN,DIRECT 0.2 MG/DL (0.0-0.3); BILIRUBIN,INDIRECT 0.3 MG/DL; BILIRUBIN,TOTAL 0.5 MG/DL (0.1-1.0); TOTAL PROTEIN 7.5 GM/DL (6.4-8.2)
== END ==
LOC: LAB 10:52
PROVIDERS: ATTEND Internal Medicine
DX: E78.2 Mixed hyperlipidemia (principal)
CPT/HCPCS: 36415; 80076

== ENCOUNTER → 2022-11-23 | Outpatient (CLI) | payer OTHER ==
[2022-11-23 08:46] LABS: ALBUMIN 3.9 GM/DL (3.2-4.5); BILIRUBIN,TOTAL 0.6 MG/DL (0.1-1.0); CALCIUM 9.4 MG/DL (8.5-10.1); CREATININE SERUM 0.76 MG/DL (0.60-1.30); POTASSIUM 3.7 MMOL/L (3.6-5.0); TOTAL PROTEIN 7.1 GM/DL (6.4-8.2)
== END ==
LOC: LAB 08:02
PROVIDERS: ATTEND Internal Medicine
DX: E78.2 Mixed hyperlipidemia (principal); I10 Essential (primary) hypertension; Z79.899 Other long term (current) drug therapy
CPT/HCPCS: 36415; 80053; 80061

== ENCOUNTER → 2022-12-22 | Outpatient (CLI) | payer OTHER ==
[2022-12-22 11:08] LABS: ALBUMIN 3.9 GM/DL (3.2-4.5); BILIRUBIN,TOTAL 0.5 MG/DL (0.1-1.0); CALCIUM 9.9 MG/DL (8.5-10.1); CREATININE SERUM 0.78 MG/DL (0.60-1.30); POTASSIUM 4.2 MMOL/L (3.6-5.0); TOTAL PROTEIN 7.3 GM/DL (6.4-8.2)
== END ==
LOC: LAB 10:27
PROVIDERS: ATTEND Internal Medicine
DX: E11.9 Type 2 diabetes mellitus without complications (principal); I10 Essential (primary) hypertension; Z73.89 Other problems related to life management difficulty
CPT/HCPCS: 36415; 80053; 83036; 84443

== ENCOUNTER → 2022-12-27 | Outpatient (CLI) | payer OTHER | LOC: LAB 10:23 | PROVIDERS: ATTEND Internal Medicine | DX: E06.9 Thyroiditis, unspecified (principal) | CPT/HCPCS: 36415; 84439; 84480 ==

== ENCOUNTER → 2023-01-19 | Outpatient (CLI) | payer OTHER | LOC: CARD 08:33 | PROVIDERS: ATTEND Internal Medicine Cardiovascular Disease | DX: I34.0 Nonrheumatic mitral (valve) insufficiency (principal); I10 Essential (primary) hypertension | CPT/HCPCS: 93306 ==

== ENCOUNTER → 2023-01-25 | Outpatient (CLI) | payer OTHER ==
[~2023-01-25] MED LIST changes: +CATHETER FLUSH 10 ML SYR IVP PRN
[2023-01-25 09:37] VITALS: BP 140/74
--- NOTE | 2023-01-25 13:54 | Cardiology Stress Test Report ---
Stress Test Report Date of Procedure/Referring: Date of Procedure: Jan 25, 2023 PCP Nate Clifford MD Admitting Physician Admitting Physician: Attending Physician: Veda Parks Baseline Heart Rate: 63 Baseline Blood Pressure: Blood Pressure Systolic: 140 Blood Pressure Diastolic: 74 Vital Signs Date Time Temp Pulse Resp B/P (MAP) Pulse Ox O2 Delivery O2 Flow Rate FiO2 01/25/23 09:37 63 140/74 (96) Baseline Vital Signs Vital Signs Date Time Temp Pulse Resp B/P (MAP) Pulse Ox O2 Delivery O2 Flow Rate FiO2 01/25/23 09:37 63 140/74 (96) Baseline EKG: Baseline EKG: NSR Summary: After explaining the procedure and details to the patient, she signed the consent and was brought to the stress nuclear laboratory. Patient exercised on standard Adolfo protocol, EKG, heart rate and blood pressure were monitored continuously, resting and stress doses of radio tracer were injected, imaging was acquired and reviewed in the short axis, horizontal long axis and vertical long axis views Patient was able to exercise for a total of 3.30 minutes on Adolfo protocol, METs 4.7 Maximum heart rate 157 Maximum blood pressure 193/74 Stress EKG, Minimal nondiagnostic changes Recovery EKG, Return to baseline TID: 1.01 SSS: 4 SDS: 4 EF: 68 Conclusion: Fair exercise tolerance for 3 minutes and 30 seconds on standard Adolfo protocol, 4.7 METS achieving 98% of maximal expected heart rate Breast attenuation with typical female pattern with no significant ischemia or infarction on SPECT images Appropriate heart rate response to exercise with severe hypertensive response to exercise with peak blood pressure 193/74 return to baseline during recovery Normal left ventricular size, ejection fraction 68% Copy Copies To 1: NATE CLIFFORD MD, BASHAR J MD Jan 25, 2023 13:54
--- NOTE | 2023-01-25 13:56 | Cardiology Stress Test Report ---
Stress Test Report Date of Procedure/Referring: Date of Procedure: Jan 25, 2023 PCP Jl Flynn MD Admitting Physician Admitting Physician: Attending Physician: Veda Parks Baseline Heart Rate: 63 Baseline Blood Pressure: Blood Pressure Systolic: 140 Blood Pressure Diastolic: 74 Vital Signs Date Time Temp Pulse Resp B/P (MAP) Pulse Ox O2 Delivery O2 Flow Rate FiO2 01/25/23 09:37 63 140/74 (96) Baseline Vital Signs Vital Signs Date Time Temp Pulse Resp B/P (MAP) Pulse Ox O2 Delivery O2 Flow Rate FiO2 01/25/23 09:37 63 140/74 (96) Baseline EKG: Baseline EKG: NSR Summary: After explaining the procedure and details to the patient, she signed the consent and was brought to the stress nuclear laboratory. Patient exercised on standard Adolfo protocol, EKG, heart rate and blood pressure were monitored continuously, resting and stress doses of radio tracer were injected, imaging was acquired and reviewed in the short axis, horizontal long axis and vertical long axis views Patient was able to exercise for a total of 9 minutes on Adolfo protocol, METs 10.5 Maximum heart rate 174 Maximum blood pressure 237/98 Stress EKG, Minimal nondiagnostic changes Recovery EKG, Return to baseline TID: 1.01 SSS: 11 SDS: 5 EF: 43 Conclusion: Good exercise tolerance for a total of 9 minutes on standard Adolfo protocol, 10.5 METS achieving 99% of maximal expected heart rate Appropriate heart rate response to exercise with severe hypertensive response to exercise with peak blood pressure 237/98 returned to baseline during recovery Nondiagnostic EKG changes with exercise return to baseline during recovery [address] depression in lead V4, V5 return to baseline during recovery Reversible ischemia involving the mid to apical inferior wall and inferolateral wall and anterolateral wall Normal left ventricular size, hypokinesia at the apex and inferoapical segment with ejection fraction 43% Copy Copies To 1: ALEM LOMBARDI MD, BASHAR J MD Jan 25, 2023 13:56
== END ==
LOC: CARD 07:29
PROVIDERS: ATTEND Physician Assistant
DX: I10 Essential (primary) hypertension (principal); N64.89 Other specified disorders of breast
CPT/HCPCS: 78452; 93017; A9502

== ENCOUNTER → 2023-02-21 | Outpatient (CLI) | payer OTHER ==
[~2023-02-21] MED LIST changes: -CATHETER FLUSH 10 ML SYR IVP PRN
[2023-02-21 10:29] LABS: ALBUMIN 4.1 GM/DL (3.2-4.5); BILIRUBIN,DIRECT 0.2 MG/DL (0.0-0.3); BILIRUBIN,INDIRECT 0.2 MG/DL; BILIRUBIN,TOTAL 0.4 MG/DL (0.1-1.0); TOTAL PROTEIN 7.1 GM/DL (6.4-8.2)
[2023-02-21 10:51] LABS: FREE T4 (FREE THYROXINE) 0.82 NG/DL (0.70-1.48)
== END ==
LOC: LAB 09:28
PROVIDERS: ATTEND Internal Medicine
DX: E06.9 Thyroiditis, unspecified (principal); E78.2 Mixed hyperlipidemia
CPT/HCPCS: 36415; 80076; 84439; 84443

== ENCOUNTER → 2023-05-01 | Outpatient (CLI) | payer OTHER ==
--- NOTE | 2023-05-01 09:45 | Diagnostic Imaging Report ---
Indication: Routine screening. Comparison is made with prior mammogram from 05/05/2022 and 03/29/2021. 2-D and 3-D bilateral screening mammography was performed with CAD. The current study was also evaluated with a Computer Aided Detection (CAD) system. Scattered fibroglandular densities are identified bilaterally. The parenchymal pattern is stable. No mass or malignant-appearing microcalcifications are seen. Axillae are unremarkable. IMPRESSION: BI-RADS Category 1 No mammographic features suspicious for malignancy are identified. ACR BI-RADS Category 1: Negative. Result letter will be mailed to the patient. Note: At least 10% of breast cancer is not imaged by mammography. Dictated by: Dictated on workstation # [id number]
== END ==
LOC: RAD 07:05
PROVIDERS: ATTEND Internal Medicine
DX: Z12.31 Encounter for screening mammogram for malignant neoplasm of breast (principal)
CPT/HCPCS: 77063; 77067

== ENCOUNTER → 2023-06-16 | Outpatient (CLI) | payer OTHER ==
[2023-06-16 11:50] LABS: BASOPHILS # (AUTO) 0.1 10^3/uL (0.0-0.1); BASOPHILS % (AUTO) 1 % (0-10); EOSINOPHILS # (AUTO) 0.3 10^3/uL (0.0-0.3); EOSINOPHILS % (AUTO) 4 % (0-10); HEMATOCRIT 41 % (35-52); HEMOGLOBIN 13.5 g/dL (11.5-16.0); LYMPHOCYTES # (AUTO) 3.6 10^3/uL (1.0-4.0); LYMPHOCYTES % (AUTO) 53 % (12-44); MEAN CORPUSCULAR HEMOGLOBIN 30 pg (25-34); MEAN CORPUSCULAR HGB CONC 33 g/dL (32-36); MEAN CORPUSCULAR VOLUME 91 fL (80-99); MEAN PLATELET VOLUME 9.5 fL (9.0-12.2); MONOCYTES # (AUTO) 0.6 10^3/uL (0.0-1.0); MONOCYTES % (AUTO) 8 % (0-12); NEUTROPHILS # (AUTO) 2.2 10^3/uL (1.8-7.8); NEUTROPHILS % (AUTO) 34 % (42-75); PLATELET COUNT 264 10^3/uL (130-400); WHITE BLOOD COUNT 6.7 10^3/uL (4.3-11.0)
[2023-06-16 12:06] LABS: ALBUMIN 4.1 GM/DL (3.2-4.5); POTASSIUM 4.1 MMOL/L (3.6-5.0)
[2023-06-16 12:07] LABS: CALCIUM 9.8 MG/DL (8.5-10.1)
[2023-06-16 12:08] LABS: TOTAL PROTEIN 7.5 GM/DL (6.4-8.2)
[2023-06-16 12:10] LABS: BILIRUBIN,TOTAL 0.5 MG/DL (0.1-1.0)
[2023-06-16 12:12] LABS: CREATININE SERUM 0.85 MG/DL (0.60-1.30)
== END ==
LOC: LAB 11:20
PROVIDERS: ATTEND Internal Medicine
DX: Z00.00 Encounter for general adult medical examination without abnormal findings (principal); E11.9 Type 2 diabetes mellitus without complications; I10 Essential (primary) hypertension; E78.2 Mixed hyperlipidemia
CPT/HCPCS: 36415; 80053; 80061; 83036; 84443; 85025

== ENCOUNTER → 2023-10-06 | Outpatient (CLI) | payer OTHER ==
[~2023-10-06] MED LIST changes: -MECL-149 PO; +MECL-291 PO
[2023-10-06 15:37] LABS: ALBUMIN 4.1 GM/DL (3.2-4.5); BILIRUBIN,TOTAL 0.4 MG/DL (0.1-1.0); CALCIUM 9.2 MG/DL (8.5-10.1); CREATININE SERUM 0.99 MG/DL (0.60-1.30); POTASSIUM 3.5 MMOL/L (3.6-5.0); TOTAL PROTEIN 7.5 GM/DL (6.4-8.2)
== END ==
LOC: LAB 15:00
PROVIDERS: ATTEND Internal Medicine
DX: E11.9 Type 2 diabetes mellitus without complications (principal); I10 Essential (primary) hypertension; I25.10 Atherosclerotic heart disease of native coronary artery without angina pectoris; J44.9 Chronic obstructive pulmonary disease, unspecified
CPT/HCPCS: 36415; 80053; 83036